=== PATIENT | male | born 1980 | race Caucasian/White ===

== ENCOUNTER → 2016-11-21 | Outpatient (CLI) | payer OTHER ==
[~2016-11-21] VITALS: Ht 185.4 cm; Wt 113.4 kg
[~2016-11-21] MED LIST: ACIDOPHILUS1 EAC3; GLUCOSAMINE1000 MG PO; MULTIVITAMINS1 EAC7; NAPROSYN500 MG PO; NEXIUM40 MG PO; PREVACID15 MG
--- NOTE | ~2016-11-21 | P ---
[facility] [place] [place] [address] PROCEDURE REPORT Name: BETTY SMITH Room #: REG [facility] Srinivas#: [id number] Admission: 11/21/16 Attend Phys: Harry Morin Discharge: Date of : 82 Report #: [id number] THIS REPORT FOR: //name// CC: Harry Garcia MD DATE OF SERVICE: 11/21/2016 PROCEDURE PERFORMED: Colonoscopy with biopsies. HISTORY OF PRESENT ILLNESS: The patient is a 36-year-old male with a history of possible diverticulitis. He has had left lower quadrant abdominal pain 2 times in the past, treated with antibiotics and improved, apparently had a CT scan showing diverticulosis with some scarring. I do not have a copy of these results at this time. He has never had a colonoscopy before. No family history of colon cancer. PROCEDURE: The risks and benefits of the procedure were explained to the patient, those risks including, but not limited to bleeding, perforation, the risk of sedation. He understood these risks and gave informed consent. Sedation was given using propofol per anesthesia. Next, a digital rectal exam was initially performed, which was normal. Next, using a standard Mysafeplacen colonoscope, the scope was placed in the patient's anus and advanced under direct vision to the cecum. The overall prep was excellent. The cecum and ileocecal valve were normal in appearance. Terminal ileum was intubated and normal in appearance. The ascending, transverse, and descending colon were normal. A few small scattered diverticula were noted in the sigmoid colon, no evidence of inflammation, otherwise normal. In the rectum, there was a 5-mm sessile polyp. This was removed with cold forceps. On retroflexion, no abnormalities were noted. The scope was then withdrawn and the procedure terminated. The patient tolerated the procedure well. IMPRESSION: 1. Mild sigmoid diverticulosis, no evidence of inflammation. 2. Small rectal polyp. 3. Otherwise, normal colonoscopy. RECOMMENDATIONS: 1. Await biopsy results. 2. Recommend a high fiber diet. 3. If polyp is adenoma, repeat in 5 years. If hyperplastic, repeat in 10 years. [facility] [address] [place] [address] PROCEDURE REPORT Name: BETTY SMITH Meaghan [facility] [id number] Admission: 11/21/16 Attend Phys: Harry Morin Discharge: Date of : 82 Report #: [id number] Thank you for allowing me to participate in his care. By: [id number] Harry Mcbride MD /nt
--- NOTE | ~2016-11-21 | S ---
[facility] [place] [address] SURGICAL PATH RPT PROCEDURE Name: DES SMITH Room #: REG [facility].#: [id number] Admission: 11/21/16 Date of : 82 Discharge: Report #: [id number] Path Case #: [id number] PATHOLOGY REPORT COLLECTION DATE: 11/21/2016 RECEIVED DATE: 11/22/2016 SUBMITTING PHYS: Dr. Harry Mcbride OTHER PHYS: Dr. Carlo Garcia SPECIMEN(S) RECEIVED: A.Rectal polyp * * * * * * * * * * * * FINAL DIAGNOSIS: Colonic mucosa, "rectal polyp", biopsy: - Tubular adenoma. - There is no evidence of high-grade dysplasia or malignancy. (SHA:[place]; 11/23/2016) PATHOLOGIST: Josh Luna M.D. REPORT ELECTRONICALLY SIGNED BY: Josh Luna M.D. DATE/TIME: 11/23/2016 11:01 * * * * * * * * * * * * GROSS PATHOLOGY: Received in formalin labeled "Des Smith, rectal polyp," are 3 segments of coleman soft tissue measuring 0.6 x 0.2 x 0.3 cm in aggregate dimensions and ranging from 0.1 to 0.4 cm in maximum dimension. The specimen is submitted entirely in cassette A1. (TSD; 11/22/2016) CLINICAL HISTORY: Pre-OP DX: Abdominal pain Post-OP DX: Diverticula, rectal polyp INITIAL CPT CODE(S): A; 46664 Professional services performed by [facility] at [facility] [address] [place] [address] Technical services performed by [facility] at [address] [place] [id number]. [facility] [address] [place] [address] SURGICAL PATH RPT PROCEDURE Name: DES SMITH Room #: REG [facility] Espino#: [id number] Admission: 11/21/16 Date of : 82 Discharge: Report #: [id number] Path Case #: [id number] [facility] [address] [address] PHONE: [phone] DIRECTOR: Jp Be M.D. * * * END OF REPORT * * *
== END | disposition home or self-care (01) ==
LOC: GI 07:16
DX: K62.1 Rectal polyp (principal); K57.30 Diverticulosis of large intestine without perforation or abscess without bleeding; G47.33 Obstructive sleep apnea (adult) (pediatric); K21.9 Gastro-esophageal reflux disease without esophagitis; Z79.899 Other long term (current) drug therapy
CPT/HCPCS: 62110; 62900

== ENCOUNTER 2018-04-04 20:25 | Inpatient (IN) | payer OTHER ==
[~2018-04-04] VITALS: Ht 185.4 cm; Wt 119.3 kg
[2018-04-04 20:28] VITALS: BP 151/103
[2018-04-04] MEDS ORDERED: TUMS PO (21:36)
[2018-04-04] MEDS ORDERED: IBUPROFEN 600600 M1 PO (21:37)
[2018-04-04 21:46] LABS: ABSOLUTE NEUTROPHILS 12.3 thou/uL (1.4-8.2); BASOPHILS 0.2 % (0.0-2.0); EOSINOPHILS 0.2 % (0.0-3.0); HEMATOCRIT 44.6 % (42.0-52.0); HEMOGLOBIN 15.7 gm/dL (14.0-18.0); LYMPHOCYTES 10.2 % (24.0-44.0); MCH 29.1 pg (26.0-34.0); MCHC 35.2 g/dL (28.0-37.0); MCV 82.5 fL (80.0-100.0); MONOCYTES 7.8 % (1.0-8.0); PLATELET COUNT 257 thou/uL (150-400); POLYS 81.6 % (36.0-66.0); RDW 13.4 % (10.5-14.5)
[2018-04-04 21:55] LABS: CALCIUM 9.4 mg/dL (8.5-10.1); CREATININE 1.2 mg/dL (0.7-1.3); POTASSIUM 3.3 mmol/L (3.5-5.1)
[2018-04-04 22:51] LABS: URINE BILIRUBIN NEGATIVE (Negative); URINE BLOOD NEGATIVE (Negative); URINE CLARITY CLEAR; URINE COLOR YELLOW; URINE GLUCOSE-RANDOM* NEGATIVE (Negative); URINE KETONES NEGATIVE (Negative); URINE LEUKOCYTES NEGATIVE (Negative); URINE NITRITE NEGATIVE (Negative); URINE PROTEIN (DIPSTICK) NEGATIVE (Negative); URINE SPECIFIC GRAVITY 1.015 (1.005-1.035); URINE UROBILINOGEN 0.2 E.U./dl (0.2-1.0)
[2018-04-04 22:56] VITALS: BP 152/84
[2018-04-04 23:00] LABS: ALBUMIN 4.2 g/dL (3.4-5.0); DIRECT BILIRUBIN < 0.1 mg/dL (<0.1-0.3); SGOT 32 U/L (15-37); SGPT 51 U/L (30-65); TOTAL BILIRUBIN 0.4 mg/dL (<0.1-1.0); TOTAL PROTEIN 7.9 g/dL (6.4-8.2)
[2018-04-04 23:13] VITALS: BP 131/88
[2018-04-05] VITALS (7 sets, daily range): BP systolic 115–131; BP diastolic 64–72
--- NOTE | 2018-04-05 00:13 | NUR ---
PT WAS ADMITTED TOTHE UNIT FROM THE ER IN A STABLE CONDITION.ADMISSION HX,EDUCATION AND ASSESSMENT COMPLETED.IVF INFUSING ORDERED.PT NPO AT THIS TIME FOR POSSIBLE SURGERY IN THE AM.PT WITH SLEEP APNEA,STATED THAT HIS WILL BRING IN HIS CPAP THIS NIGHT.PT RESTING ON HIS BED AT THIS TIME.CALL LIGHT WITHIN REACH.
[2018-04-05 05:46] LABS: HEMATOCRIT 42.7 % (42.0-52.0); HEMOGLOBIN 14.6 gm/dL (14.0-18.0); MCH 28.5 pg (26.0-34.0); MCHC 34.1 g/dL (28.0-37.0); MCV 83.5 fL (80.0-100.0); RBC 5.12 mil/uL (4.50-6.00); RDW 13.3 % (10.5-14.5)
[2018-04-05 06:05] LABS: ALBUMIN 3.5 g/dL (3.4-5.0); POTASSIUM 4.2 mmol/L (3.5-5.1); TOTAL BILIRUBIN 0.7 mg/dL (<0.1-1.0); TOTAL PROTEIN 6.8 g/dL (6.4-8.2)
[2018-04-05] MEDS ORDERED: MIRALAX17 GM PO (14:24)
[2018-04-05] MEDS ORDERED: ONDANSETRON HCL4 M2 PO (14:24)
[2018-04-05] MEDS ORDERED: NORCO 5-325 TA1 EACH PO (14:24)
--- NOTE | 2018-04-05 18:25 | NUR ---
A/O X4, PAIN MANAGED WITH MEDICATIONS, GALLBLADDER SURGERY TODAY. ARRIVED POST OP AT 1600. PAIN 05/11 , ICE PACK IN PLACE. 4 LAP SITED C/D/I, UP TO BATHROOM WITH . PLANS TO DISCHARGE AFTER DINNER PER DR SILVERMAN AND DR CARVER. SCRIPTS GIVEN TO PATIENT/. CALL LIGHT IN [facility]
--- NOTE | 2018-04-05 20:04 | NUR ---
PT DISCHARGED AT 2000 HRS. IV REMOVED FROM RIGHT AC, 2X2 PLACED WITH TAPE OVER TOP. DC INSTRUCTIONS BRIEFLY DISCUSSED, PT VOICED UNDERSTANDING. AT BEDSIDE, SHE IS AN RN. STATED SHE ALREADY HAS PTS PRESCRIPTIONS. PT UP TO TOILET, VOIDED JUST PRIOR TO LEAVING. ESCORTED BY JEWELRY MANAGER IN W/C TO CAR.
== END 2018-04-05 20:00 | disposition home or self-care (01) | DRG 419 ==
LOC: ER 20:25 → EROBS 21:47 → 4W 22:58
PROVIDERS: Nurse Practitioner; Student in an Organized Health Care Education/Training Program; ADMIT Family Medicine
DX: K80.62 Calculus of gallbladder and bile duct with acute cholecystitis without obstruction (principal); G47.30 Sleep apnea, unspecified; K21.9 Gastro-esophageal reflux disease without esophagitis; Z99.81 Dependence on supplemental oxygen; Z79.899 Other long term (current) drug therapy
CPT/HCPCS: 10040; 50010; 50101; 50249; 50411; 50555; 50558; 50900; 50962; 51489; 51975; 52265; 52287; 53307; 53310; 54022; 54118; 55245; 55317; 56462; 56525; 56526; 62110; 62900; 65131; 70005

== ENCOUNTER → 2020-02-08 | Outpatient (CLI) | payer OTHER ==
[~2020-02-08] MED LIST changes: +IBUPROFEN 600600 M1 PO; +MIRALAX17 GM PO; +NORCO 5-325 TA1 EACH PO; +ONDANSETRON HCL4 M2 PO; +TUMS PO
== END ==
LOC: LAB 10:13
PROVIDERS: ATTEND Nurse Practitioner
DX: Z20.828 Contact with and (suspected) exposure to other viral communicable diseases (principal)